=== PATIENT | female | born 1930 | race Caucasian/White ===

== ENCOUNTER 2017-07-24 08:36 | Emergency (ER) | payer BC, MEDICARE ==
[2017-07-24] MEDS ORDERED: Acetaminophen TAB* 325 MG PO ONE (09:43)
--- NOTE | 2017-07-24 09:51 | RAD ---
INDICATION: RIGHT wrist pain since this morning. No reported preceding injury. COMPARISON: None. TECHNIQUE: AP, lateral, and oblique views RIGHT wrist. REPORT: Diffuse soft tissue swelling most marked over the volar aspect at the level of the distal forearm and wrist. No conspicuous foreign body or subcutaneous emphysema evident. Bone density appears decreased throughout. Negative for fracture or malalignment. 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 Osteophytosis and moderate joint space narrowing with subchondral sclerosis at the scaphoid trapezium articulation. IMPRESSION: Significant soft tissue swelling most marked over the volar aspect of the distal forearm and wrist. Correlate for potential cellulitis given absence of reported injury.
--- NOTE | 2017-07-24 11:04 | UC ---
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 Onset/Duration: Gradual Onset, Lasting Days - 3, Still Present Severity Initially: Moderate Severity Currently: Severe Pain Intensity: 8 Pain Scale Used: 0-10 Numeric Character Of Pain: Aching, Throbbing Aggravating Factor(s): Movement, Lifting, Flexion, Extension Alleviating Factor(s): Nothing Associated Signs And Symptoms: Positive: Swelling, Redness, Weakness - Allergies/Home Medications Allergies/Adverse Reactions: Allergies Allergy/AdvReac Type Severity Reaction Status Date / Time amoxicillin Allergy Unknown Verified 07/24/17 09:11 Reaction Details doxycycline Allergy Unknown Verified 07/24/17 09:11 Reaction Details levofloxacin [From Levaquin] Allergy Unknown Verified 07/24/17 09:11 Reaction Details lisinopril Allergy Unknown Verified 07/24/17 09:11 Reaction Details Home Medications: Home Medications Acetaminophen TAB* [Tylenol TAB*] 650 mg PO Q4H PRN 07/24/17 [History Confirmed 07/24/17] Allopurinol TAB* [Zyloprim 100 MG TAB*] 100 mg PO 0800 07/24/17 [History Confirmed 07/24/17] Aspirin 81 mg CHEW TAB* [Aspirin Low Dose TAB*] 81 mg PO 0800 07/24/17 [History Confirmed 07/24/17] Atorvastatin* [Lipitor*] 10 mg PO [id number] 07/24/17 [History Confirmed 07/24] Bismuth Subsalicylate [Bismatrol] 15 ml PO Q4H PRN 07/24/17 [History Confirmed 07/24/17] C,E,Zinc,Copper 11/Cqhjc0r/Lut [Ocuvite Adult 50 Plus Softgel] 1 each PO 0800 [History Confirmed 07/24/17] Cholecalciferol TAB* [Vitamin D TAB*] 1,000 unit PO 0800 07/24/17 [History Confirmed 07/24/17] Diltiazem CD CAP* [Cardizem CD CAP*] 180 mg PO 0800 07/24/17 [History Confirmed 07/24/17] Docusate CAP* [Colace Cap*] 100 mg PO 0800,199907/24/17 [History Confirmed ] Doxazosin TAB* [Cardura TAB*] 4 mg PO 199907/24/17 [History Confirmed 07/24/17] Eucalyptus/Menthol [[place] Cough Drops] 1 dmitry MT Q1H PRN 07/24/17 [History Confirmed 07/24/17] Furosemide TAB* [Lasix TAB*] 40 mg PO 0800 07/24/17 [History Confirmed 07/24/17] Gabapentin CAP(*) [Neurontin 300 CAP(*)] 300 mg PO 0800,1200,1600,199907/24/17 [History Confirmed 07/24/17] GuaiFENesin DM sugar free* [Robitussin DM sugar free*] 10 ml PO Q4H PRN [History Confirmed 07/24/17] Ibuprofen TAB* [Advil TAB*] 400 mg PO Q12H PRN 07/24/17 [History Confirmed 07/24] Mag Hydrox/Aluminum Hyd/Simeth [Maalox Advanced 200-200-20 mg/5Ml] 15 ml PO Q4H PRN 07/24/17 [History Confirmed 07/24/17] Magnesium Hydroxide LIQ* [Milk of Magnesia LIQ*] 30 ml PO DAILY PRN 07/24/17 [ History Confirmed 07/24/17] Methyl Salicylate/Menthol [Goodsense Muscle Rub 8-30 %] 1 applic TOPICAL BID PRN 07/24/17 [History Confirmed 07/24/17] Mirabegron (NF) [Myrbetriq (NF)] 25 mg PO 0800 07/24/17 [History Confirmed 07/24] Omeprazole CAP* [Prilosec CAP* 20 MG] 40 mg PO 0800 07/24/17 [History Confirmed 07/24/17] Polyethylene Glycol 3350* [Miralax*] 17 gm PO DAILY PRN 07/24/17 [History Confirmed 07/24/17] Propylthiouracil TAB* [Ptu TAB*] 50 mg PO 0800,199907/24/17 [History Confirmed 07/24/17] Senna TAB* [Senokot TAB*] 1 tab PO 0800 07/24/17 [History Confirmed 07/24/17] Trimethoprim TAB* 100 mg PO 0800 07/24/17 [History Confirmed 07/24/17] Vitamin THERAPEUTIC TAB* [Theragran TAB*] 1 tab PO 0800 07/24/17 [History Confirmed 07/24/17] fentaNYL PATCH 50 MCG/HR* [Duragesic PATCH 50 Mcg/Hr*] 50 mcg TRANSDERM Q72H [History Confirmed 07/24/17] PMH/Surg Hx/FS Hx/Imm Hx Cardiovascular History: Cardiac Disease, Hypertension GI/ History: Ulcer - Surgical History Surgical History: Unable to Obtain/Confirm - Family History Known Family History: Negative: Blood Disorder - Social History Alcohol Use: None Substance Use Type: None Smoking Status (MU): Never Smoked Tobacco Review of Systems Constitutional: Negative Skin: Negative Eyes: Negative ENT: Negative Respiratory: Negative Cardiovascular: Negative Is Patient Immunocompromised?: No All Other Systems Reviewed And Are Negative: Yes Physical Exam Triage Information Reviewed: Yes Appearance: Well-Nourished, Pain Distress Vital Signs: Initial Vital Signs Temp 100 F 07/24/17 09:03 Pulse 86 07/24/17 09:03 Resp 18 07/24/17 09:03 BP 156/67 07/24/17 09:03 Pulse Ox 97 07/24/17 09:03 Vital Signs Reviewed: Yes Eyes: Positive: Conjunctiva Clear ENT: Positive: Normal ENT inspection, Hearing grossly normal, Pharynx normal Neck: Positive: Supple, Nontender, No Lymphadenopathy Respiratory: Positive: Chest non-tender, Lungs clear, Normal breath sounds Cardiovascular: Positive: RRR, No Murmur, Pulses Normal Musculoskeletal: Positive: Other: - right wrist : + swelling, erytheam , warm to touch , sever diffuse tenderness Diagnostics - Laboratory Diagnostic Studies Completed/Ordered: Right Wrist xray IMPRESSION: Significant soft tissue swelling most marked over the volar aspect of the. distal forearm and wrist. Correlate for potential cellulitis given absence of reported. injury. Hand/Wrist Course/Dx - Differential Dx/Diagnosis Provider Diagnoses: gout right wrist Discharge - Sign-Out/Discharge Documenting (check all that apply): Discharge/Admit/Transfer - Discharge Plan Condition: Stable Disposition: HOME Prescriptions: predniSONE TAB* [Deltasone TAB*] 40 mg PO DAILY #10 tab Patient Education Materials: Gout (ED) Referrals: Rodolfo Britton MD [Primary Care Provider] - 3 Days Additional Instructions: cont. with rest , ice , take Tylenol as needed for pain will place on a wrist splint for comfort follow up with your pcp in 3 days - Billing Disposition and Condition Condition: STABLE Disposition: HOME
== END 2017-07-24 10:24 | disposition home or self-care (01) ==
LOC: UCCORT 08:36
DX: M10.9 Gout, unspecified (principal); I10 Essential (primary) hypertension; K25.9 Gastric ulcer, unspecified as acute or chronic, without hemorrhage or perforation; Z88.3 Allergy status to other anti-infective agents; Z79.82 Long term (current) use of aspirin
CPT/HCPCS: 99203; A9270-GY; G0463